=== PATIENT | male | born 1990 | race Caucasian/White ===

== ENCOUNTER 2018-11-21 00:39 | Emergency (ER) | payer OTHER ==
[~2018-11-21] VITALS: Ht 193 cm; Wt 90.7 kg
[2018-11-21] MEDS ORDERED: Tetanus/Diptheria/Pertussis IM ONE (01:00)
--- NOTE | 2018-11-21 01:00 | NUR ---
ED Nurse Note: RECIEVED PT BROUGHT IN BY FRIENDS S/P MECHANICAL FALL, DENIES K.O BUT PT HAS MULTIPLE ABRASIONS TO FACE AND BLEEDING FROM TOP UPPER LIP, PT IS CONFUSED AND ORIENTED TO NAME ONLY, PT CONTINUES TO CONSTANTLY GET OUT OF BED, PT FRIEND AT BEDSIDE TO ASSIST, PT GOWNED AND PLACED ON CARDIAC MONITORING, NO SOB OR LABORED BREATHING NOTED, CAP REFILL LESS THAN 3 SEC, WILL CONTINUE TO CLOSELY MONTIOR AND RESUME CARE ORDERED.
--- NOTE | 2018-11-21 01:28 | Emergency Room Report ---
History of Present Illness General Chief Complaint: Head Injury Source: Patient, Friend Present Illness HPI 28-year-old male with no past medical history he presents with head injury and facial injury from a fall. He is been drinking heavily tonight. His friends that they were at a pool and he slipped and fell hitting his face on the ground. He sustained abrasion to his face. Did not pass out. Patient very poor historian because of his intoxication. Allergies: Coded Allergies: No Known Allergies (Unverified , 11/21/18) Patient History Past Medical History: see triage record, old chart reviewed Past Surgical History: none Pertinent Family History: none Social History: Denies: smoking Immunizations: other Reviewed Nursing Documentation: PMH: Agreed; PSxH: Agreed Nursing Documentation-PMH Past Medical History: No Stated History Review of Systems Eye: Denies: eye pain, blurred vision ENT: Denies: ear pain, nose congestion, throat swelling Respiratory: Denies: cough, shortness of breath Cardiovascular: Denies: chest pain, palpitations Gastrointestinal: Denies: abdominal pain, diarrhea, nausea, vomiting Musculoskeletal: Denies: back pain, joint pain Skin: Denies: rash Neurological: Denies: headache, numbness Endocrine: Denies: increased thirst, increased urine Hematologic/Lymphatic: Denies: easy bruising All Other Systems: negative except mentioned in HPI Physical Exam Vital Signs Date Time Temp Pulse Resp B/P (MAP) Pulse Ox O2 Delivery O2 Flow Rate FiO2 11/21/18 00:46 97.9 69 16 142/91 (108) 97 Room Air Vitals unremarkable Sp02 EP Interpretation: reviewed, normal General Appearance: well appearing, no apparent distress, alert Head: normocephalic, other - Supple abrasion to his forehead lip and chin. He has superficial laceration to the left upper lip with edema. Eyes: bilateral eye PERRL, bilateral eye EOMI ENT: hearing grossly normal, normal pharynx, other - Chipped fracture to the central right incisor. Neck: full range of motion, supple, no meningismus Respiratory: chest non-tender, lungs clear, normal breath sounds Cardiovascular #1: regular rate, rhythm, no murmur Gastrointestinal: normal bowel sounds, non tender, no mass, no organomegaly, no bruit, non-distended Musculoskeletal: back normal, gait/station normal, normal range of motion Psychiatric: mood/affect normal Medical Decision Making Diagnostic Impression: Primary Impression: Acute head injury Qualified Codes: S09.90XA - Unspecified injury of head, initial encounter Additional Impressions: Abrasion of face Qualified Codes: S00.81XA - Abrasion of other part of head, initial encounter Tooth fracture Qualified Codes: S02.5XXA - Fracture of tooth (traumatic), initial encounter for closed fracture Alcohol intoxication Qualified Codes: F10.920 - Alcohol use, unspecified with intoxication, uncomplicated ER Course Patient presents with head injury to a fall because of his intoxication. No evidence of any fracture or intracranial bleed. His injury are superficial nothing to be sutured. Will discharge home with friends. CT/MRI/US Diagnostic Results CT/MRI/US Diagnostic Results : Imaging Test Ordered: CT head Impression Per radiologist negative Last Vital Signs Date Time Temp Pulse Resp B/P (MAP) Pulse Ox O2 Delivery O2 Flow Rate FiO2 11/21/18 00:46 97.9 69 16 142/91 (108) 97 Room Air Status: improved Disposition: HOME, SELF-CARE Condition: Stable Scripts Ibuprofen* (MOTRIN*) 600 Mg Tablet 600 MG ORAL THREE TIMES A DAY, #30 TAB 0 Refills Prov: Demarcus Spencer MD 11/21/18 Additional Instructions: Follow-up with your doctor in 7 days. Follow-up with a dentist for your tooth fracture. Return if symptoms worsen. Do not drink to excess. Demarcus Spencer MD Nov 21, 2018 01:28
--- NOTE | 2018-11-21 01:30 | NUR ---
ED Nurse Note: PT CONSTANTLY ASKING FOR WATER, STATES OK TO GIVE, PT HAD VERY LARGE EMESIS AFTER, FOOD CONTENTS, MEDICATED FOR NAUSEA, PT SLEEPING, AROUSES TO TACTILE STIMULI AND REMAINS ON CARDIAC MONITORING, O2 SAT=97% ON RA, HOB ELEVATED, WILL CONTINUE TO CLOSELY MONITOR FOR MEDICATION EFFECTIVENESS OR ANY CHANGES. PT CAN ONLY RECALL NAME, CAN NOT RECALL DATE, TIME OR EVENT. MD IS AWARE.
--- NOTE | 2018-11-21 02:07 | NUR ---
ED Nurse Note: PT OFF TO CT.
[2018-11-21] MEDS ORDERED: IBUPROFEN600 MG ORAL (02:28)
[2018-11-21 02:30] VITALS: BP 107/53
--- NOTE | 2018-11-21 02:40 | Diagnostic Imaging Report ---
EXAM: CT Head Without Intravenous Contrast CLINICAL HISTORY: TRAUMA TECHNIQUE: Axial computed tomography images of the head brain without intravenous contrast. CTDI is 0.15, 70.38 mGy and DLP is 1502 mGy-cm. One or more of the following dose reduction techniques were used: automated exposure control, adjustment of the mA and or kV according to patient size, use of iterative reconstruction technique. COMPARISON: No relevant prior studies available. FINDINGS: Brain: No acute infarct, hemorrhage, mass or edema. No significant white matter disease. Ventricles: Unremarkable. No ventriculomegaly. Bones joints: Unremarkable. No acute fracture. Soft tissues: Unremarkable. Sinuses: Minimal mucosal thickening in the paranasal sinuses. Mastoid air cells: Unremarkable as visualized. No mastoid effusion. IMPRESSION: No acute findings.
[2018-11-21] MEDS ORDERED: Neosporin Oint Ud Pkt TOPIC ONE ×2 (04:59→05:00)
[2018-11-21 05:00] VITALS: BP 126/56
--- NOTE | 2018-11-21 05:00 | NUR ---
ED Nurse Note: PT IS COMPLETELY AWAKE AND ALERT, AMBULATED TO BATHROOM, TOLERATED WELL, DENIES CP, NO SOB, PT FAMILY/FRIEND CALLED TO COME AND PICK HIM UP, PT FACE CLEANED AND BACITRACIN OINTMENT APPLIED, WILL CONTINUE TO MONITOR WHILE WAITING FOR FRIEND FOR DISCHARGE.
[2018-11-21 05:20] VITALS: BP 107/53
--- NOTE | 2018-11-21 05:20 | NUR ---
ER DISCHARGE NOTE: Patient is cleared to be discharged per ERMD, pt is aox4, on room air, with stable vital signs. pt was given dc and prescription instructions, pt was able to verbalize understanding, pt id band removed without complications. pt is able to ambulate with steady gait. pt took all belongings.
== END 2018-11-21 05:20 | disposition home or self-care (01) ==
LOC: EMR 02:55
DX: S00.81XA Abrasion of other part of head, initial encounter (principal); S09.90XA Unspecified injury of head, initial encounter; S02.5XXA Fracture of tooth (traumatic), initial encounter for closed fracture; F10.920 Alcohol use, unspecified with intoxication, uncomplicated; Z23 Encounter for immunization; W01.0XXA Fall on same level from slipping, tripping and stumbling without subsequent striking against object, initial encounter; Y92.095 Swimming-pool of other non-institutional residence as the place of occurrence of the external cause
CPT/HCPCS: 70450; 90471; 90715; 99284